=== PATIENT | female | born 1965 | race Caucasian/White ===

== ENCOUNTER 2017-06-28 07:50 | Emergency (ER) | payer SELFPAY ==
[2017-06-28] MEDS: IPRATROPIUM (NEB) 0.5 MG/2.5 ML AMP NEB (11:04)
[2017-06-28] MEDS: predniSONE 20 MG TAB PO (11:04)
[2017-06-28] MEDS: LEVALBUTEROL (NEB) 1.25 MG/0.5 ML AMP INH (11:04)
== END 2017-06-28 12:55 | disposition home or self-care (01) ==
LOC: FTE 07:50
DX: J45.901 Unspecified asthma with (acute) exacerbation (principal); J06.9 Acute upper respiratory infection, unspecified
CPT/HCPCS: 71020; 94664; 99283-25

== ENCOUNTER 2018-02-06 02:15 | Emergency (ER) | payer MEDICAID, OTHER ==
[2018-02-06] MEDS ORDERED: IPRATROPIUM (NEB) 0.5 MG/2.5 ML AMP NEB (03:07)
[2018-02-06] MEDS: METHYLPREDNISOLONE 125 MG INJ IM (03:17)
[2018-02-06] MEDS: IPRATROPIUM (NEB) 0.5 MG/2.5 ML AMP HHN (03:21)
[2018-02-06] MEDS: ALBUTEROL 0.5% (NEB) 2.5 MG/0.5 ML AMP INH (03:21)
== END 2018-02-06 04:58 | disposition home or self-care (01) ==
LOC: FTE 04:58
DX: J45.901 Unspecified asthma with (acute) exacerbation (principal)
CPT/HCPCS: 94644; 96372; 99284-25

== ENCOUNTER 2018-03-09 03:36 | Inpatient (IN) | payer MEDICAID ==
[2018-03-09 04:24] LABS: ADD MAN DIFF? NO; BASOPHILS % 0.5 % (0.0-2.0); EOSINOPHILS # 0.1 10^3/ul (0.0-0.5); EOSINOPHILS % 2.1 % (0.0-7.0); HEMATOCRIT 39.3 % (37.0-47.0); HEMOGLOBIN 12.5 g/dl (12.0-16.0); LYMPHOCYTES # 1.1 10^3/ul (0.8-2.9); LYMPHOCYTES % 25.8 % (15.0-51.0); MEAN CORPUSCULAR HEMOGLOBIN 28.3 pg (29.0-33.0); MEAN CORPUSCULAR HGB CONC 31.8 g/dl (32.0-37.0); MEAN CORPUSCULAR VOLUME 89.1 fl (82.0-101.0); MEAN PLATELET VOLUME 10.3 fl (7.4-10.4); MONOCYTE # 0.5 10^3/ul (0.3-0.9); MONOCYTES % 10.6 % (0.0-11.0); NEUTROPHIL # 2.6 10^3/ul (1.6-7.5); NEUTROPHILS % 60.5 % (39.0-77.0); PLATELET COUNT 205 10^3/UL (140-415); RED BLOOD COUNT 4.41 10^6/ul (4.20-5.40); RED CELL DISTRIBUTION WIDTH 13.9 % (11.5-14.5)
[2018-03-09 04:24] LABS: WHITE BLOOD COUNT 4.3 10^3/ul (4.8-10.8)
[2018-03-09] MEDS: ALBUTEROL 0.083% (NEB) 2.5 MG/3 ML AMP NEB (04:25)
[2018-03-09] MEDS: IPRATROPIUM (NEB) 0.5 MG/2.5 ML AMP NEB (04:25)
[2018-03-09 04:45] LABS: ANION GAP 11 (8-16); BLOOD UREA NITROGEN 20 mg/dl (7-20); CARBON DIOXIDE 26 mmol/L (21-31); CHLORIDE 110 mmol/L (97-110); CREATININE 0.79 mg/dl (0.44-1.00); GLUCOSE 125 mg/dl (70-220); POTASSIUM 4.7 mmol/L (3.5-5.1); SODIUM 142 mmol/L (135-144)
[2018-03-09 04:57] LABS: TROPONIN-I 0.023 ng/ml (0.000-0.120)
[2018-03-09 05:46] LABS: B-TYPE NATRIURETIC PEPTIDE 6410 PG/ML (0-125)
[2018-03-09] MEDS: FUROSEMIDE 20 MG INJ IV ×2 (06:17→10:54)
[2018-03-09] MEDS ORDERED: morphine 2 MG INJ IV (07:00)
[2018-03-09] MEDS ORDERED: BISACODYL (EC) 5 MG TAB PO (07:00)
[2018-03-09] MEDS ORDERED: NITROGLYCERIN (SL) 0.4 MG TAB SL (07:00)
[2018-03-09] MEDS ORDERED: NACL 0.9% 3 ML SYG IV (07:00)
[2018-03-09] MEDS ORDERED: DOCUSATE SODIUM 100 MG CAP PO (07:00)
[2018-03-09] MEDS ORDERED: ONDANSETRON 4 MG INJ IV (07:00)
[2018-03-09] MEDS ORDERED: ACETAMINOPHEN 325 MG TAB PO (07:00)
[2018-03-09 07:41] LABS: CHOL/HDL RATIO 2.6 RATIO; HDL CHOLESTEROL 46 mg/dl (37-92); LDL CHOLESTEROL,CALCULATED 56 mg/dl; TRIGLYCERIDES 88 mg/dl (0-149)
[2018-03-09 07:41] LABS: CHOLESTEROL 120 mg/dl (100-200)
[2018-03-09 07:57] LABS: HEMOGLOBIN A1C 5.8 % (0-5.9)
[2018-03-09 08:44] LABS: THYROID STIMULATING HORMONE 0.974 MIU/L (0.465-4.680)
[2018-03-09 09:46] LABS: CREATINE KINASE 71 IU/L (23-200)
[2018-03-09 09:58] LABS: CK INDEX 1.9; CK-MB 1.34 ng/ml (0.0-2.4); TROPONIN-I 0.016 ng/ml (0.000-0.120)
[2018-03-09] MEDS: IPRATROPIUM (NEB) 0.5 MG/2.5 ML AMP HHN ×4 (10:00→21:00)
[2018-03-09] MEDS ORDERED: METOPROLOL 25 MG TAB PO (10:00)
[2018-03-09] MEDS: LEVALBUTEROL (NEB) 0.31 MG/3 ML AMP HHN ×4 (10:00→21:00)
[2018-03-09] MEDS: ASPIRIN 81 MG TAB PO (10:54)
[2018-03-09] MEDS: ENOXAPARIN 40 MG/0.4 ML SYG SC (11:06)
[2018-03-09] MEDS ORDERED: FUROSEMIDE 20 MG INJ IV (14:00)
[2018-03-09 16:18] LABS: CREATINE KINASE 51 IU/L (23-200)
[2018-03-09 16:31] LABS: CK INDEX 1.8; CK-MB 0.94 ng/ml (0.0-2.4); TROPONIN-I 0.014 ng/ml (0.000-0.120)
[2018-03-09] MEDS: FUROSEMIDE 40 MG INJ IV (17:58)
[2018-03-09] MEDS ORDERED: morphine LIQ (10 MG/5 ML) CUP PO (19:00)
[2018-03-09] MEDS: MONTELUKAST 10 MG TAB PO (20:32)
[2018-03-10] MEDS: LEVALBUTEROL (NEB) 0.31 MG/3 ML AMP HHN ×6 (01:15→21:00)
[2018-03-10] MEDS: IPRATROPIUM (NEB) 0.5 MG/2.5 ML AMP HHN ×6 (01:15→21:00)
[2018-03-10] MEDS: FUROSEMIDE 40 MG INJ IV (05:59)
[2018-03-10 06:14] LABS: ADD MAN DIFF? NO
[2018-03-10 06:23] LABS: BASOPHILS % 0.8 % (0.0-2.0); EOSINOPHILS # 0.1 10^3/ul (0.0-0.5); EOSINOPHILS % 3.3 % (0.0-7.0); HEMATOCRIT 41.3 % (37.0-47.0); HEMOGLOBIN 13.4 g/dl (12.0-16.0); LYMPHOCYTES # 1.2 10^3/ul (0.8-2.9); LYMPHOCYTES % 31.1 % (15.0-51.0); MEAN CORPUSCULAR HEMOGLOBIN 28.3 pg (29.0-33.0); MEAN CORPUSCULAR HGB CONC 32.4 g/dl (32.0-37.0); MEAN CORPUSCULAR VOLUME 87.3 fl (82.0-101.0); MEAN PLATELET VOLUME 11.1 fl (7.4-10.4); MONOCYTE # 0.4 10^3/ul (0.3-0.9); MONOCYTES % 11.1 % (0.0-11.0); NEUTROPHIL # 2.1 10^3/ul (1.6-7.5); NEUTROPHILS % 53.4 % (39.0-77.0); PLATELET COUNT 229 10^3/UL (140-415); RED BLOOD COUNT 4.73 10^6/ul (4.20-5.40); RED CELL DISTRIBUTION WIDTH 14.3 % (11.5-14.5)
[2018-03-10 07:07] LABS: ALANINE AMINOTRANSFERASE 143 IU/L (13-69); ALBUMIN 3.9 g/dl (3.3-4.9); ALBUMIN/GLOBULIN RATIO 1.56; ALKALINE PHOSPHATASE 85 IU/L (42-121); ANION GAP 11 (8-16); ASPARTATE AMINO TRANSFERASE 79 IU/L (15-46); BILIRUBIN,INDIRECT 1.5 mg/dl (0-1.1); BILIRUBIN,TOTAL 1.5 mg/dl (0.2-1.3); BLOOD UREA NITROGEN 19 mg/dl (7-20); CALCIUM 9.4 mg/dl (8.4-10.2); CARBON DIOXIDE 30 mmol/L (21-31); CHLORIDE 107 mmol/L (97-110); CREATININE 0.84 mg/dl (0.44-1.00); GLUCOSE 108 mg/dl (70-220); MAGNESIUM 2.4 mg/dl (1.7-2.5); POTASSIUM 4.2 mmol/L (3.5-5.1); SODIUM 144 mmol/L (135-144); TOTAL PROTEIN 6.4 g/dl (6.1-8.1)
[2018-03-10] MEDS: ASPIRIN 81 MG TAB PO (08:20)
[2018-03-10] MEDS ORDERED: FUROSEMIDE 20 MG TAB PO (09:00)
[2018-03-10] MEDS: ENOXAPARIN 40 MG/0.4 ML SYG SC (09:00)
[2018-03-10] MEDS: LISINOPRIL 5 MG TAB PO (10:30)
[2018-03-10] MEDS: SPIRONOLACTONE 25 MG TAB PO (11:46)
[2018-03-10] MEDS: METOPROLOL 25 MG TAB PO ×2 (11:47→21:16)
[2018-03-10 13:48] LABS: HEPATITIS B SURFACE ANTIGEN NEGATIVE (NEGATIVE)
[2018-03-10 14:05] LABS: HEPATITIS C VIRAL ANTIBODY NEGATIVE (NEGATIVE)
[2018-03-10 14:05] LABS: HEPATITIS B SURFACE ANTIBODY NEGATIVE (NEGATIVE)
[2018-03-10 15:28] LABS: INR 0.99; PROTIME 13.2 Sec (11.9-14.9)
[2018-03-10 15:29] LABS: PARTIAL THROMBOPLASTIN TIME 29.5 Sec (25.0-35.0)
[2018-03-10 16:30] LABS: ADD UMIC NO; UR ASCORBIC ACID 40 mg/dL (NEGATIVE); UR BILIRUBIN (Dip) NEGATIVE (NEGATIVE); UR BLOOD (Dip) NEGATIVE (NEGATIVE); UR CLARITY CLEAR (CLEAR); UR COLOR YELLOW (YELLOW); UR GLUCOSE (Dip) NEGATIVE (NEGATIVE); UR KETONES (Dip) NEGATIVE (NEGATIVE); UR LEUKOCYTE ESTERASE (Dip) NEGATIVE Leu/ul (NEGATIVE); UR NITRITE (Dip) NEGATIVE (NEGATIVE); UR SPECIFIC GRAVITY (Dip) 1.023 (1.003-1.030); UR TOTAL PROTEIN (Dip) NEGATIVE (NEGATIVE); UR UROBILINOGEN (Dip) 1+ mg/dL (NEGATIVE)
[2018-03-10] MEDS: FUROSEMIDE 20 MG INJ IV (18:17)
[2018-03-10] MEDS: MONTELUKAST 10 MG TAB PO (21:14)
[2018-03-11] MEDS: IPRATROPIUM (NEB) 0.5 MG/2.5 ML AMP HHN ×6 (02:10→20:23)
[2018-03-11] MEDS: LEVALBUTEROL (NEB) 0.31 MG/3 ML AMP HHN ×6 (02:10→20:23)
[2018-03-11 05:31] LABS: WHITE BLOOD COUNT 4.1 10^3/ul (4.8-10.8)
[2018-03-11 05:31] LABS: ADD MAN DIFF? NO; BASOPHILS % 0.5 % (0.0-2.0); EOSINOPHILS # 0.2 10^3/ul (0.0-0.5); EOSINOPHILS % 3.6 % (0.0-7.0); HEMATOCRIT 41.9 % (37.0-47.0); HEMOGLOBIN 13.6 g/dl (12.0-16.0); LYMPHOCYTES # 1.1 10^3/ul (0.8-2.9); LYMPHOCYTES % 27.7 % (15.0-51.0); MEAN CORPUSCULAR HEMOGLOBIN 28.5 pg (29.0-33.0); MEAN CORPUSCULAR HGB CONC 32.5 g/dl (32.0-37.0); MEAN CORPUSCULAR VOLUME 87.7 fl (82.0-101.0); MEAN PLATELET VOLUME 10.7 fl (7.4-10.4); MONOCYTE # 0.5 10^3/ul (0.3-0.9); MONOCYTES % 12.6 % (0.0-11.0); NEUTROPHIL # 2.3 10^3/ul (1.6-7.5); NEUTROPHILS % 55.4 % (39.0-77.0); PLATELET COUNT 239 10^3/UL (140-415); RED BLOOD COUNT 4.78 10^6/ul (4.20-5.40)
[2018-03-11 06:21] LABS: ALANINE AMINOTRANSFERASE 103 IU/L (13-69); ALBUMIN 3.6 g/dl (3.3-4.9); ALBUMIN/GLOBULIN RATIO 1.24; ALKALINE PHOSPHATASE 75 IU/L (42-121); ANION GAP 13 (8-16); ASPARTATE AMINO TRANSFERASE 43 IU/L (15-46); BILIRUBIN,INDIRECT 0.9 mg/dl (0-1.1); BILIRUBIN,TOTAL 0.9 mg/dl (0.2-1.3); BLOOD UREA NITROGEN 24 mg/dl (7-20); CALCIUM 9.3 mg/dl (8.4-10.2); CARBON DIOXIDE 28 mmol/L (21-31); CHLORIDE 105 mmol/L (97-110); CREATININE 0.77 mg/dl (0.44-1.00); GLUCOSE 110 mg/dl (70-220); POTASSIUM 4.1 mmol/L (3.5-5.1); SODIUM 142 mmol/L (135-144); TOTAL PROTEIN 6.5 g/dl (6.1-8.1)
[2018-03-11] MEDS: FUROSEMIDE 20 MG INJ IV (06:32)
[2018-03-11] MEDS: SPIRONOLACTONE 25 MG TAB PO (08:52)
[2018-03-11] MEDS: ASPIRIN 81 MG TAB PO (08:52)
[2018-03-11] MEDS: FUROSEMIDE 20 MG TAB PO (08:52)
[2018-03-11] MEDS: LISINOPRIL 5 MG TAB PO (09:00)
[2018-03-11] MEDS: ENOXAPARIN 40 MG/0.4 ML SYG SC (09:09)
[2018-03-11] MEDS: MONTELUKAST 10 MG TAB PO (21:26)
[2018-03-12] MEDS: LEVALBUTEROL (NEB) 0.31 MG/3 ML AMP HHN ×6 (01:38→21:54)
[2018-03-12] MEDS: IPRATROPIUM (NEB) 0.5 MG/2.5 ML AMP HHN ×3 (01:39→08:44)
[2018-03-12] MEDS: ENOXAPARIN 40 MG/0.4 ML SYG SC (07:43)
[2018-03-12] MEDS: ASPIRIN 81 MG TAB PO (08:06)
[2018-03-12] MEDS ORDERED: HEPARIN 1000 UNITS/ML 10 ML INJ (08:29)
[2018-03-12] MEDS ORDERED: MIDAZOLAM 1 MG/ML 2 ML INJ (08:29)
[2018-03-12] MEDS ORDERED: VERAPAMIL 5 MG INJ (08:29)
[2018-03-12] MEDS ORDERED: FENTAnyl 50 MCG/ML VIAL (08:29)
[2018-03-12] MEDS ORDERED: IODIXANOL LOCM 100 ML BTL (08:29)
[2018-03-12] MEDS ORDERED: LIDOCAINE 1% (MDV) 20 ML INJ (08:29)
[2018-03-12] MEDS ORDERED: NITROGLYCERIN (IC) 100 MCG/ML INJ (08:29)
[2018-03-12] MEDS ORDERED: IPRATROPIUM (NEB) 0.5 MG/2.5 ML AMP HHN (09:30)
[2018-03-12] MEDS: LISINOPRIL 5 MG TAB PO (10:42)
[2018-03-12] MEDS: SPIRONOLACTONE 25 MG TAB PO (11:54)
[2018-03-13] MEDS: LEVALBUTEROL (NEB) 0.31 MG/3 ML AMP HHN ×4 (02:15→13:19)
[2018-03-13 07:59] LABS: ANION GAP 13 (8-16); CARBON DIOXIDE 24 mmol/L (21-31); CHLORIDE 108 mmol/L (97-110); POTASSIUM 4.2 mmol/L (3.5-5.1); SODIUM 141 mmol/L (135-144)
[2018-03-13 08:12] LABS: BLOOD UREA NITROGEN 23 mg/dl (7-20); CALCIUM 9.4 mg/dl (8.4-10.2); CREATININE 0.65 mg/dl (0.44-1.00); GLUCOSE 113 mg/dl (70-220)
[2018-03-13] MEDS: SPIRONOLACTONE 25 MG TAB PO (09:32)
[2018-03-13] MEDS: FUROSEMIDE 40 MG TAB PO (09:32)
[2018-03-13] MEDS: LISINOPRIL 5 MG TAB PO (09:33)
[2018-03-13] MEDS: ENOXAPARIN 40 MG/0.4 ML SYG SC (09:39)
== END 2018-03-13 15:40 | disposition home or self-care (01) | DRG 287 ==
LOC: FTE 03:36 → TEL 03-12 09:35 → 6WM 06:20
PROVIDERS: Family Medicine
PROC: 4A023N7 Measurement of Cardiac Sampling and Pressure, Left Heart, Percutaneous Approach (ICD-10-PCS; principal; 2018-03-12 08:15)
PROC: B211YZZ Fluoroscopy of Multiple Coronary Arteries using Other Contrast (ICD-10-PCS; 2018-03-12 08:15)
DX: I11.0 Hypertensive heart disease with heart failure (principal); I24.8 Other forms of acute ischemic heart disease; I50.21 Acute systolic (congestive) heart failure; J45.909 Unspecified asthma, uncomplicated; I42.8 Other cardiomyopathies; J20.8 Acute bronchitis due to other specified organisms; Z79.82 Long term (current) use of aspirin
CPT/HCPCS: 36415; 71045; 80048; 80053; 80061; 81003; 82550; 82553; 83036; 83735; 83880; 84443; 84484; 85025; 85610; 85730; 86706; 86803; 87340; 93005; 93306; 93458; 94640; 94644; 94664; 96374; 99285-25; G0378